=== PATIENT | male | born 1995 | race Caucasian/White ===

== ENCOUNTER 2019-03-30 22:47 | Emergency (ER) | payer SELFPAY, MEDICAID | END 2019-03-31 01:41 | disposition home or self-care (01) | LOC: FTE 22:47 | DX: L98.9 Disorder of the skin and subcutaneous tissue, unspecified (principal); F17.210 Nicotine dependence, cigarettes, uncomplicated; F42.4 Excoriation (skin-picking) disorder | CPT/HCPCS: 99282 ==